=== PATIENT | female | born 1955 | race Native Hawaiian/Other Pacific Islander ===

== ENCOUNTER 2019-03-16 09:43 | Outpatient (CLI) | payer BC | END 2019-03-16 20:47 | disposition home or self-care (01) | LOC: MAMMO 09:43 | DX: Z12.31 Encounter for screening mammogram for malignant neoplasm of breast (principal); Z13.820 Encounter for screening for osteoporosis ==

== ENCOUNTER 2020-07-31 11:43 | Outpatient (CLI) | payer OTHER | END 2020-07-31 22:59 | disposition home or self-care (01) | LOC: MAMMO 11:43 | DX: Z12.31 Encounter for screening mammogram for malignant neoplasm of breast (principal) ==

== ENCOUNTER 2021-08-18 12:43 | Outpatient (CLI) | payer OTHER | END 2021-08-18 19:11 | disposition home or self-care (01) | LOC: MAMMO 12:43 | PROVIDERS: ATTEND Nurse Practitioner Family | DX: Z12.31 Encounter for screening mammogram for malignant neoplasm of breast (principal) ==

== ENCOUNTER 2022-10-28 11:03 | Outpatient (CLI) | payer OTHER | END 2022-10-28 19:16 | disposition home or self-care (01) | LOC: MAMMO 11:03 | PROVIDERS: ATTEND Nurse Practitioner Family | DX: Z12.31 Encounter for screening mammogram for malignant neoplasm of breast (principal) ==

== ENCOUNTER 2023-11-22 13:08 | Outpatient (CLI) | payer OTHER | END 2023-11-22 19:44 | disposition home or self-care (01) | LOC: MAMMO 13:08 | PROVIDERS: ATTEND Nurse Practitioner Family | DX: Z12.31 Encounter for screening mammogram for malignant neoplasm of breast (principal) ==